=== PATIENT | female | born 1995 ===

== ENCOUNTER 2017-01-12 09:55 | Emergency (ER) | payer MEDICAID ==
[2017-01-12 10:00] VITALS: BP 128/79; PULSE 80; TEMP 97; O2SAT 98; BMI 26.4
[2017-01-12 10:10] VITALS: RESP 17
--- NOTE | 2017-01-12 10:13 | ED PDOC ---
HPI: General Adult Time Seen by Provider: 01/12/17 10:12 Chief Complaint (Nursing): Cough, Cold, Congestion Chief Complaint (Provider): congestion History Per: Patient Additional Complaint(s): 21-year-old female presents to emergency Department with 1 month history of persistent seasonal allergy symptoms. Patient states she has had itchy, watery eyes, nasal congestion and itchy scratchy throat. She has been taking Claritin daily but this has not helped. She denies fever or chills, no chest pain, shortness of breath or dyspnea on exertion. Past Medical History Reviewed: Historical Data, Nursing Documentation, Vital Signs Vital Signs: Last Vital Signs Temp 97 F L 01/12/17 10:07 Pulse 80 01/12/17 10:07 Resp 17 01/12/17 10:07 BP 128/79 01/12/17 10:07 Pulse Ox 98 01/12/17 10:13 - Medical History PMH: Asthma (as a child) - Surgical History Surgical History: Appendectomy - Family History Family History: States: No Known Family Hx - Living Arrangements Living Arrangements: With Family - Social History Current smoker - smoking cessation education provided: No Alcohol: None Drugs: Denies - Home Medications Home Medications: Ambulatory Orders Medication Instructions Recorded Azelastine HCl 6 ml TOP ASDIR #1 bottle 01/12/17 Fluticasone Nasal [Flonase] 1 spray NS DAILY #1 bottle 01/12/17 - Allergies Allergies/Adverse Reactions: Allergies Allergy/AdvReac Type Severity Reaction Status Date / Time No Known Allergies Allergy Verified 01/12/17 10:07 Review of Systems ROS Statement: Except As Marked, All Systems Reviewed And Found Negative Constitutional: Negative for: Fever, Chills Eyes: Positive for: Other (itchy watery eyes) ENT: Positive for: Nose Congestion Respiratory: Negative for: Cough, Shortness of Breath, SOB with Exertion Gastrointestinal: Negative for: Nausea, Vomiting Neurological: Negative for: Headache, Dizziness Physical Exam - Reviewed Nursing Documentation Reviewed: Yes Vital Signs Reviewed: Yes - Physical Exam Appears: Positive for: Well, Non-toxic, No Acute Distress Head Exam: Positive for: ATRAUMATIC, NORMAL INSPECTION Skin: Positive for: Normal Color Eye Exam: Positive for: Normal appearance, EOMI, PERRL, Other (Bilateral conjunctival injection, tearing noted with no purulent discharge, no periorbital swelling or tenderness bilaterally). Negative for: Nystagmus ENT: Positive for: TM Is/Are (TM's normal bilaterally), Nasal Congestion. Negative for: Pharyngeal Erythema, Tonsillar Exudate, Tonsillar Swelling Neck: Positive for: Painless ROM Cardiovascular/Chest: Positive for: Regular Rate, Rhythm Respiratory: Positive for: Normal Breath Sounds. Negative for: Wheezing, Respiratory Distress Extremity: Positive for: Normal ROM. Negative for: Pedal Edema Neurologic/Psych: Positive for: Alert, Oriented - ECG O2 Sat by Pulse Oximetry: 98 Pulse Ox Interpretation: Normal Medical Decision Making Medical Decision Making: Impression: Seasonal allergies Patient is well appearing, afebrile, nontoxic appearing. Plan: Rx given for Azestaline ophthalmic and Flonase. Patient was instructed to take Suni during the day and Benadryl at night. Patient was referred to clinic for follow up. Disposition - Clinical Impression Clinical Impression: Seasonal allergies - Patient ED Disposition Is Patient to be Admitted: No Counseled Patient/Family Regarding: Diagnosis, Need For Followup, Rx Given - Disposition Referrals: [facility] [Outside] Disposition: Routine/Home Disposition Time: 10:24 Condition: STABLE Additional Instructions: Over the counter meds: Take 1 tablet of Suni 24 hour release daily, take 2 tablets of Benadryl before bedtime. Take rx meds as directed along with above over the counter meds. Follow up with clinic in 2-3 days. Prescriptions: Azelastine HCl 6 ml TOP ASDIR #1 bottle Fluticasone Nasal [Flonase] 1 spray NS DAILY #1 bottle Instructions: Allergies (ED)
== END 2017-01-12 10:48 | disposition home or self-care (01) ==
LOC: H.ER 09:55
DX: J30.2 Other seasonal allergic rhinitis (principal)

== ENCOUNTER 2017-05-12 10:58 | Emergency (ER) | payer MEDICAID ==
[2017-05-12 10:58] VITALS: BMI 26.4
[2017-05-12 11:17] VITALS: O2SAT 98
[2017-05-12] MEDS ORDERED: Sodium Chloride 0.9% 1,000 ML IV STA ×2 (11:24)
[2017-05-12 12:08] LABS: BASO % 0.5 % (0.0-2.0); EOS # 0.1 K/uL (0.0-0.7); EOS % 1.8 % (0.0-4.0); HEMATOCRIT 41.8 % (34.0-47.0); LYMPH # 1.6 K/uL (1.0-4.3); LYMPH % 25.1 % (20.0-40.0); MEAN CELL VOLUME 85.5 fl (81.0-99.0); MEAN CORPUSCULAR HEMOGLOBIN 28.2 pg (27.0-31.0); MEAN CORPUSCULAR HGB CONC 32.9 g/dL (33.0-37.0); MEAN PLATELET VOLUME 7.3 fl (7.2-11.7); MONO # 0.8 K/uL (0.0-0.8); MONO % 12.5 % (0.0-10.0); NEUT # 3.8 K/uL (1.8-7.0); NEUT % 60.1 % (50.0-75.0); NRBC % 0.1 % (0.0-0.0); RED CELL DISTRIBUTION WIDTH 13.9 % (11.5-14.5); WHITE BLOOD COUNT 6.4 K/uL (4.8-10.8)
[2017-05-12 12:19] LABS: ALB/GLOB RATIO 1.3 (1.0-2.1); ALKALINE PHOSPHATASE 119 U/L (38-126); ALT/SGPT 55 U/L (9-52); AST/SGOT 29 U/L (14-36); BILIRUBIN,TOTAL 0.4 mg/dl (0.2-1.3); BLOOD UREA NITROGEN 10 mg/dl (7-17); CARBON DIOXIDE 23 mmol/L (22-30); CHLORIDE 107 mmol/L (98-107); GFR AFRICAN-AMERICAN > 60; GLUCOSE,RANDOM 93 mg/dL (65-105); LIPASE 81 U/L (23-300); SODIUM 141 mmol/l (132-148); TOTAL PROTEIN 6.9 G/DL (6.3-8.2)
--- NOTE | 2017-05-12 16:33 | ED PDOC ---
HPI: Abdomen Time Seen by Provider: 05/12/17 11:05 Chief Complaint (Nursing): Abdominal Pain Chief Complaint (Provider): Diffuse abdominal pain, N/V/D History Per: Patient History/Exam Limitations: no limitations Onset/Duration Of Symptoms: Days (3) Outside of [place] travel?: No Current Symptoms Are (Timing): Still Present Severity: Moderate Quality Of Discomfort: Cramping Associated Symptoms: Nausea, Vomiting, Diarrhea, Loss Of Appetite. denies: Fever, Chills, Back Pain, Chest Pain, Constipation, Urinary Symptoms Additional Complaint(s): Pt reports pain mostly prior to BM. No similar in the past. Past Medical History Reviewed: Historical Data, Nursing Documentation, Vital Signs Vital Signs: Last Vital Signs Temp 98.3 F 05/12/17 11:14 Pulse 98 H 05/12/17 11:14 Resp 20 05/12/17 11:14 BP 112/65 05/12/17 11:14 Pulse Ox 98 05/12/17 16:33 - Medical History PMH: Asthma (as a child) - Surgical History Surgical History: Appendectomy - Family History Family History: States: No Known Family Hx - Living Arrangements Living Arrangements: With Family - Social History Current smoker - smoking cessation education provided: No Alcohol: None Drugs: Denies - Home Medications Home Medications: Ambulatory Orders Medication Instructions Recorded Azelastine HCl 6 ml TOP ASDIR #1 bottle 01/12/17 Fluticasone Nasal [Flonase] 1 spray NS DAILY #1 bottle 01/12/17 Dicyclomine [Bentyl] 20 mg PO Q6H PRN #20 tab 05/12/17 Ondansetron ODT [Zofran ODT] 4 mg PO QID #20 odt 05/12/17 - Allergies Allergies/Adverse Reactions: Allergies Allergy/AdvReac Type Severity Reaction Status Date / Time No Known Allergies Allergy Verified 05/12/17 11:14 Review of Systems ROS Statement: Except As Marked, All Systems Reviewed And Found Negative Constitutional: Negative for: Fever, Chills Cardiovascular: Negative for: Chest Pain Respiratory: Negative for: Cough Gastrointestinal: Positive for: Nausea, Vomiting, Abdominal Pain, Diarrhea Genitourinary Female: Negative for: Dysuria, Frequency Physical Exam - Reviewed Nursing Documentation Reviewed: Yes Vital Signs Reviewed: Yes - Physical Exam Appears: Positive for: Well, Non-toxic, No Acute Distress Head Exam: Positive for: ATRAUMATIC, NORMAL INSPECTION, NORMOCEPHALIC Skin: Positive for: Normal Color, Warm, DRY Eye Exam: Positive for: Normal appearance ENT: Positive for: Normal ENT Inspection Neck: Positive for: Normal, Painless ROM Cardiovascular/Chest: Positive for: Regular Rate, Rhythm Respiratory: Positive for: CNT, Normal Breath Sounds Gastrointestinal/Abdominal: Positive for: Normal Exam, Bowel Sounds, Soft. Negative for: Tenderness Back: Positive for: Normal Inspection Extremity: Positive for: Normal ROM Neurologic/Psych: Positive for: Alert, Oriented - Laboratory Results Result Diagrams: 05/12/17 11:50 05/12/17 11:50 - ECG O2 Sat by Pulse Oximetry: 98 Disposition - Clinical Impression Clinical Impression: Gastroenteritis - Patient ED Disposition Is Patient to be Admitted: No Counseled Patient/Family Regarding: Diagnosis, Need For Followup, Rx Given - Disposition Disposition: Routine/Home Disposition Time: 14:41 Condition: GOOD Prescriptions: Dicyclomine [Bentyl] 20 mg PO Q6H PRN #20 tab PRN Reason: Cramping Ondansetron ODT [Zofran ODT] 4 mg PO QID #20 odt Instructions: Gastroenteritis (ED)
[2017-05-12 16:48] VITALS: BP 132/74; PULSE 82; RESP 19; TEMP 98.6
== END 2017-05-12 16:49 | disposition home or self-care (01) ==
LOC: H.ER 10:58
DX: K52.9 Noninfective gastroenteritis and colitis, unspecified (principal); J45.909 Unspecified asthma, uncomplicated
CPT/HCPCS: 80053; 81025; 83690; 85025; 87045; 87177; 87209; 96374; 99284; J2405; J7040

== ENCOUNTER 2017-05-14 00:30 | Emergency (ER) | payer MEDICAID ==
[2017-05-14 00:30] VITALS: BMI 26.4
[2017-05-14 00:56] VITALS: BP 118/71; PULSE 75; RESP 16; TEMP 98.1; O2SAT 98
--- NOTE | 2017-05-14 01:33 | ED PDOC ---
HPI: Skin/Bite Injury Time Seen by Provider: 05/14/17 00:52 Chief Complaint (Nursing): Abnormal Skin Integrity Chief Complaint (Provider): rash History Per: Patient History/Exam Limitations: no limitations Onset/Duration Of Symptoms: Days (1) Current Symptoms Are (Timing): Still Present Quality Of Symptoms: Itching Additional History Per: Patient Additional Complaint(s): 22 y/o female presents for eval of generalized pruritic rash x 1 day. Patient states she was in ED 2 days ago for stomach virus, was discharged with Bentyl which she has been taking for >24 hours. Patient notes rash to arms, abdomen, back. Denies facial/tongue swelling, difficulty speaking/swallowing, nausea/ vomiting, chest pain, shortness of breath, palpitations, changes in bowel movements. Past Medical History Reviewed: Historical Data, Nursing Documentation, Vital Signs Vital Signs: Last Vital Signs Temp 98.1 F 05/14/17 00:53 Pulse 75 05/14/17 00:53 Resp 16 05/14/17 00:53 BP 118/71 05/14/17 00:53 Pulse Ox 98 05/14/17 01:34 - Medical History PMH: Asthma (as a child) - Surgical History Surgical History: Appendectomy - Family History Family History: States: No Known Family Hx - Home Medications Home Medications: Ambulatory Orders Medication Instructions Recorded Azelastine HCl 6 ml TOP ASDIR #1 bottle 01/12/17 Fluticasone Nasal [Flonase] 1 spray NS DAILY #1 bottle 01/12/17 Dicyclomine [Bentyl] 20 mg PO Q6H PRN #20 tab 05/12/17 Ondansetron ODT [Zofran ODT] 4 mg PO QID #20 odt 05/12/17 Prednisone 50 mg PO DAILY #4 tablet 05/14/17 - Allergies Allergies/Adverse Reactions: Allergies Allergy/AdvReac Type Severity Reaction Status Date / Time No Known Allergies Allergy Verified 05/14/17 00:52 Review of Systems ROS Statement: Except As Marked, All Systems Reviewed And Found Negative Skin: Positive for: Rash Physical Exam - Reviewed Nursing Documentation Reviewed: Yes Vital Signs Reviewed: Yes - Physical Exam Appears: Positive for: Well, Non-toxic, No Acute Distress Head Exam: Positive for: ATRAUMATIC, NORMAL INSPECTION, NORMOCEPHALIC Skin: Positive for: Rash (hives noted b/l UE, back, abdomen ) Eye Exam: Positive for: Normal appearance ENT: Positive for: Normal ENT Inspection Cardiovascular/Chest: Positive for: Regular Rate, Rhythm Respiratory: Positive for: Normal Breath Sounds Gastrointestinal/Abdominal: Positive for: Normal Exam Back: Positive for: Normal Inspection Extremity: Positive for: Normal ROM Neurologic/Psych: Positive for: Alert, Oriented - ECG O2 Sat by Pulse Oximetry: 98 - Progress ED Course And Treament: Solumedrol IM, Benadryl PO, Pepcid PO On re-eval, patient states she is feeling better. Rash visibly improved. Patient educated on findings, discharged with rx Prednisone Advised Benadryl. follow up PMD 2-3 days. D/C Neel. Return to ED for worsening/concerning symptoms. Disposition - Clinical Impression Clinical Impression: Rash and nonspecific skin eruption - Patient ED Disposition Is Patient to be Admitted: No Counseled Patient/Family Regarding: Diagnosis, Need For Followup, Rx Given - Disposition Referrals: [facility] [Outside] Disposition: Routine/Home Disposition Time: 02:47 Condition: IMPROVED Additional Instructions: Take medication as directed. Take Benadryl as directed, as needed. Follow up with primary doctor in 2-3 days. Return to ED for worsening/concerning symptoms. Prescriptions: Prednisone 50 mg PO DAILY #4 tablet Instructions: Urticaria (ED) Print Language: CYMRAES
== END 2017-05-14 03:39 | disposition home or self-care (01) ==
LOC: H.ER 00:30
DX: L50.9 Urticaria, unspecified (principal)
CPT/HCPCS: 81025; 96372; 99282; J2930

== ENCOUNTER 2018-04-23 21:19 | Emergency (ER) | payer MEDICAID ==
[2018-04-23 21:20] VITALS: BMI 26.4
[2018-04-23 21:38] VITALS: O2SAT 100
--- NOTE | 2018-04-23 22:21 | ED PDOC ---
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 Patient is and x3 weeks in her . Patient reports the pain as a substernal chest discomfort described as pressure that started x1 hr SEED BUYER while at rest. Patient states pain is exacerbated with deep breaths. She also reports right lower extremity cramps but denies any nausea, vomit, palpitations, dyspnea, diaphoresis or recent travel. Patient is not on control. No further medical complaints. PMD: [facility] Past Medical History Reviewed: Historical Data, Nursing Documentation, Vital Signs Vital Signs: Last Vital Signs Temp 98.0 F 04/23/18 21:35 Pulse 83 04/23/18 21:50 Resp 16 04/23/18 21:35 BP 128/68 04/23/18 21:50 Pulse Ox 100 04/24/18 00:11 - Medical History PMH: Asthma (as a child) - Surgical History Surgical History: Appendectomy - Family History Family History: States: Unknown Family Hx - Social History Current smoker - smoking cessation education provided: No Alcohol: None Drugs: Denies - Home Medications Home Medications: Ambulatory Orders Medication Instructions Recorded Azelastine HCl 6 ml TOP ASDIR #1 bottle 01/12/17 Fluticasone Nasal [Flonase] 1 spray NS DAILY #1 bottle 01/12/17 Dicyclomine [Bentyl] 20 mg PO Q6H PRN #20 tab 05/12/17 Ondansetron ODT [Zofran ODT] 4 mg PO QID #20 odt 05/12/17 Prednisone 50 mg PO DAILY #4 tablet 05/14/17 - Allergies Allergies/Adverse Reactions: Allergies Allergy/AdvReac Type Severity Reaction Status Date / Time No Known Allergies Allergy Verified 05/14/17 00:52 Review of Systems ROS Statement: Except As Marked, All Systems Reviewed And Found Negative Cardiovascular: Positive for: Chest Pain (substernal chest pressure). Negative for: Palpitations, Other (diaphoresis) Respiratory: Negative for: Shortness of Breath Gastrointestinal: Negative for: Nausea, Vomiting Musculoskeletal: Positive for: Leg Pain (right lower cramps) Physical Exam - Reviewed Nursing Documentation Reviewed: Yes Vital Signs Reviewed: Yes - Physical Exam Appears: Positive for: Non-toxic, No Acute Distress Head Exam: Positive for: ATRAUMATIC, NORMAL INSPECTION, NORMOCEPHALIC Skin: Positive for: Normal Color, Warm, Dry Eye Exam: Positive for: Normal appearance, EOMI, PERRL ENT: Positive for: Normal ENT Inspection Neck: Positive for: Painless ROM Cardiovascular/Chest: Positive for: Regular Rate, Rhythm. Negative for: Murmur Respiratory: Positive for: Normal Breath Sounds. Negative for: Respiratory Distress Gastrointestinal/Abdominal: Positive for: Normal Exam, Soft. Negative for: Tenderness Back: Positive for: Normal Inspection Extremity: Positive for: Normal ROM (upper and lower extremities). Negative for : Calf Tenderness, Deformity, Swelling Neurologic/Psych: Positive for: Alert, Oriented. Negative for: Motor/Sensory Deficits - Laboratory Results Result Diagrams: 04/23/18 22:23 04/23/18 22:23 - ECG O2 Sat by Pulse Oximetry: 100 (RA) Pulse Ox Interpretation: Normal Medical Decision Making Medical Decision Making: Time: 21:42 Initial Impression: 23 y/o female with chest pain in setting of early Initial Plan: --EKG --Beta-HCG, Quantitative --CMP --Troponin I --Urine dipstick --Urine --CBC w/ differential --Tylenol 325 mg tab 975 mg PO --Urinalysis --Duplex Lower Extrem Vein Bilat [US] --Reevaluation Duplex Lower Extremity: FINDINGS: Right deep veins: Normal color and spectral Doppler flow. Normal compressibility. No deep vein thrombosis. Right superficial veins: Unremarkable. Left deep veins: Normal color and spectral Doppler flow. Normal compressibility. No deep vein thrombosis. Left superficial veins: Unremarkable. Soft tissues: No popliteal cyst. IMPRESSION: No evidence of DVT within lower extremities. Labs reviewed with no clinically significant abnormalities. Patient reports improvement in symptoms with Tylenol. Given absence of tachycardia and other risk factors, no further imaging is required to rule out pulmonary embolism. Upon provider reevaluation patient is feeling better, is medically stable, and requires no further treatment in the ED at this time. Patient will be discharged. Counseling was provided and all questions were answered regarding diagnosis and need for follow up with PMD. There is agreement to discharge plan. Return if symptoms persist or worsen. ----- Scribe Attestation: Documented by Aristides Page, acting as a scribe for Barrington Puente MD. Provider Scribe Attestation: All medical record entries made by the Scribe were at my direction and personally dictated by me. I have reviewed the chart and agree that the record accurately reflects my personal performance of the history, physical exam, medical decision making, and the department course for this patient. I have also personally directed, reviewed, and agree with the discharge instructions and disposition. Disposition - Clinical Impression Clinical Impression: Atypical chest pain - Patient ED Disposition Is Patient to be Admitted: No - Disposition Disposition: Routine/Home Disposition Time: 00:07 Condition: STABLE Instructions: Chest Pain That Is Not Caused by the Heart (DC) Forms: [employer] ([place])
[2018-04-23 22:29] LABS: BASO # 0.1 K/uL (0.0-0.2); BASO % 0.9 % (0.0-2.0); EOS # 0.1 K/uL (0.0-0.7); EOS % 1.2 % (0.0-4.0); HEMOGLOBIN 12.4 g/dL (12.0-16.0); LYMPH % 24.2 % (20.0-40.0); MEAN CELL VOLUME 84.7 fl (81.0-99.0); MEAN CORPUSCULAR HEMOGLOBIN 27.8 pg (27.0-31.0); MEAN CORPUSCULAR HGB CONC 32.9 g/dL (33.0-37.0); MEAN PLATELET VOLUME 7.2 fl (7.2-11.7); MONO # 0.7 K/uL (0.0-0.8); MONO % 7.9 % (0.0-10.0); NEUT # 5.5 K/uL (1.8-7.0); NEUT % 65.8 % (50.0-75.0); RBC 4.47 Mil/uL (3.80-5.20); RED CELL DISTRIBUTION WIDTH 14.3 % (11.5-14.5); WHITE BLOOD COUNT 8.4 K/uL (4.8-10.8)
[2018-04-23 22:39] LABS: ALB/GLOB RATIO 1.4 (1.0-2.1); ALT/SGPT 26 U/L (9-52); AST/SGOT 22 U/L (14-36); BLOOD UREA NITROGEN 11 mg/dl (7-17); CALCIUM 9.1 mg/dL (8.4-10.2); GFR AFRICAN-AMERICAN > 60; GFR NON-AFRICAN AMERICAN > 60
[2018-04-23 22:54] LABS: SQUAMOUS EPITHIAL 7 /hpf (0-5); URINE BACTERIA RARE (<OCC); URINE BILIRUBIN NEGATIVE (NEGATIVE); URINE BLOOD NEGATIVE (NEGATIVE); URINE CLARITY CLOUDY (Clear); URINE COLOR YELLOW (YELLOW); URINE GLUCOSE (UA) NEG (Normal); URINE LEUKOCYTE ESTERASE SMALL Leu/uL (Negative); URINE PROTEIN NEGATIVE (NEGATIVE); URINE UROBILINOGEN 0.2-1.0 mg/dL (0.2-1.0)
[2018-04-24 00:53] VITALS: BP 115/68; PULSE 79; RESP 18; TEMP 98.4
--- NOTE | 2018-04-24 07:34 | CARD ---
APPROVED REPORT Date of service: 04/23/2018 <Conclusion> Normal sinus rhythm Normal ECG
--- NOTE | 2018-04-24 11:46 | US ---
Date of service: 04/23/2018 PROCEDURE: Bilateral lower extremity venous duplex Doppler. HISTORY: lower extremity cramps COMPARISON: None available. TECHNIQUE: Bilateral common femoral, superficial femoral, popliteal and posterior tibial veins were evaluated. Flow was assessed with color Doppler, compressibility, assessment of phasic flow and augmentation response. FINDINGS: COMMON FEMORAL VEIN: Right CFV: Unremarkable. Left CFV: Unremarkable. SUPERFICIAL FEMORAL VEIN: Right SFV: Unremarkable. Left SFV: Unremarkable. POPLITEAL VEIN: Right Popliteal: Unremarkable. Left Popliteal: Unremarkable. POSTERIOR TIBIAL VEIN: Right PTV: Unremarkable. Left PTV: Unremarkable. OTHER FINDINGS: None. IMPRESSION: No evidence of deep venous thrombosis. Concordant results (preliminary interpretation) provided by [facility]. Procedure Completed: 22:35. Preliminary ([facility]) Report: Dictated and Authenticated: 23:28 Final Interpretation: 11:44.
== END 2018-04-24 00:56 | disposition home or self-care (01) ==
LOC: H.ER 21:19
DX: R07.89 Other chest pain (principal); J45.909 Unspecified asthma, uncomplicated

== ENCOUNTER 2018-09-15 09:28 | Emergency (ER) | payer MEDICAID, OTHER ==
--- NOTE | 2018-09-15 11:13 | OBHP ---
Datetime: 09/15/2018 10:11 IP Adm Impression: , intrauterine IP Admit Plan: Observation/Evaluation Admit Comment, IP Provider: 23 YO with IUP at EGA 27 Wks EDC by first T , wh o presents to EDOB with c/o low back pain, that began at 7 AM, is intermittent cramping in the center of her lower back, 6/10, with no radiation. Patient also reports upper abdm pain since 8AM, is const ant, states that it feels like soreness of her epigastric area 6/10, associated with some occasional nausea but not vomiting. Patient denies any VB, Contx, LOF, also denies ENGEL, dizziness, blurry vision, dysuria, diarrhea, chills, fever or any other acute medical complaint at this time. Patient reports +FM. ROS: unremarkable, except as per HPI. Provider: [facility] OBGYN: LMP unknown to patient, h/o preeclampsia in first with 2015 by induction at 37wks. Patient reports normal current . PMH: Denies FMH: Mother w/ anemia SURG: Appendectomy. ALL: NKA SOCHx: Denies ETOH/drugs/Smoking MEDS: Vit LABS: patient reports current labs are normal (MR not available). PE GEN: VS WNL, NAD HEENT: NCAT RESP: CTA b/l CV: RRR, S1 S2 normal ABD: Gravid, BS + normal, soft to palpation, mild tenderness to palp in epigastrium. BACK: No CVA tenderness, mild tenderness to palp of lower paravertebral muscles. LE: No edema, Pedro's neg A/P 23 YO with IUP at EGA 27 Wks EDC , with c/o back pain that began this AM, and upper abdominal tenderness, negative for dysuria, chills, fever, vomiting, diarrhea or other acute m edical complaint at this time. Impression: Lower back pain and upper abdominal pain due to muscle tenderness in . Plan: -Observation in L_D -Matenal VS monitoring -FHR monitoring -D/C planning after monitoring and evaluation Case seen and discussed with attending Dr Keyla Marino MD PGY1 Addendum by Dr. Ramires: I have evaluated the patient independently and I agree with the abov. The p atient was checked, cervix L/T/C - do not suspect labor or chorio. Patient discharged home, labor pre cautions FHR - Baseline A Provider: 140s Comments, ACOG Physical Exam: see triage comment EGA AdmitDate IP: 27.0 Vital Signs Provider: Reviewed; Within Normal Limits IP Chief Complaint: Maternal discomfort NICHD Variability Prov Fetus A: Moderate 6-25bpm NICHD Accel Fetus A IP Provider: [id number] FHR Category Provider Fetus A: Category I
--- NOTE | 2018-09-15 11:15 | OBDCSUM ---
Datetime: 09/15/2018 11:05 Discharged to, Provider: Home Follow up at, Provider: Yuri OROZ[facility] Disch Instr Activity: Normal activity; May be up to bathroom; May be up for meals; May Shower Disch Instr Diet: Regular Discharge Diagnosis, Provider: False Labor - Undelivered Discharge Time: 09/15/2018 11:10 Follow up in weeks, Provider: 09/19/2018 Disch Referrals: None
[2018-09-15 15:28] VITALS: BP 124/68; PULSE 111; O2SAT 99
== END 2018-09-15 11:10 | disposition home or self-care (01) ==
LOC: H.EROB2 09:28
DX: O26.92 Pregnancy related conditions, unspecified, second trimester (principal); M54.5 Low back pain; R10.2 Pelvic and perineal pain; R11.0 Nausea; Z3A.27 27 weeks gestation of pregnancy

== ENCOUNTER 2018-10-28 15:28 | Emergency (ER) | payer OTHER ==
[2018-10-28 15:29] VITALS: BMI 26.4
[2018-10-28 15:36] VITALS: BP 124/78; PULSE 80; RESP 16; TEMP 98.2; O2SAT 96
--- NOTE | 2018-10-28 16:46 | ED PDOC ---
HPI: General Adult Time Seen by Provider: 10/28/18 15:38 Chief Complaint (Nursing): Abnormal Skin Integrity Chief Complaint (Provider): Diffuse Pruritus History Per: Patient History/Exam Limitations: no limitations Onset/Duration Of Symptoms: Days (x3) Current Symptoms Are (Timing): Still Present Additional Complaint(s): 23 year old female, 33 weeks , presents to the ED for evaluation of diffuse pruritus for the past three days not associated with a rash. Additionally, she reports having atraumatic, non-radiating lower back pain for the past four weeks, worse when sitting down. She states she has not taken any anti-itch or pain medications. Otherwise denies abdominal pain, vaginal bleeding, throat swelling, shortness of breath, fever, chills, incontinence, dysuria, hematuria, and any new exposures. Of note, she reports she has felt her baby move today. PMD: Dr. Marshall Past Medical History Reviewed: Historical Data, Nursing Documentation, Vital Signs Vital Signs: Last Vital Signs Temp 98.2 F 10/28/18 15:33 Pulse 80 10/28/18 15:33 Resp 16 10/28/18 15:33 BP 124/78 10/28/18 15:33 Pulse Ox 96 10/28/18 15:33 - Medical History PMH: Asthma (as a child) - Surgical History Surgical History: Appendectomy - Family History Family History: States: Unknown Family Hx - Social History Current smoker - smoking cessation education provided: No Alcohol: None Drugs: Denies - Home Medications Home Medications: Ambulatory Orders Medication Instructions Recorded Fluticasone Nasal [Flonase] 1 spray NS DAILY #1 bottle 01/12/17 RX: Azelastine HCl 6 ml TOP ASDIR #1 bottle 01/12/17 Dicyclomine [Bentyl] 20 mg PO Q6H PRN #20 tab 05/12/17 Ondansetron ODT [Zofran ODT] 4 mg PO QID #20 odt 05/12/17 RX: Prednisone 50 mg PO DAILY #4 tablet 05/14/17 DiphenhydrAMINE [Benadryl] 1 - 2 cap PO Q6 PRN #10 cap 10/28/18 - Allergies Allergies/Adverse Reactions: Allergies Allergy/AdvReac Type Severity Reaction Status Date / Time No Known Allergies Allergy Verified 05/14/17 00:52 Review of Systems ROS Statement: Except As Marked, All Systems Reviewed And Found Negative Constitutional: Positive for: Other (itching). Negative for: Fever, Chills ENT: Negative for: Throat Swelling Respiratory: Negative for: Shortness of Breath Gastrointestinal: Negative for: Abdominal Pain Genitourinary Female: Negative for: Dysuria, Incontinence, Hematuria, Vaginal Bleeding Musculoskeletal: Positive for: Back Pain (lower) Skin: Negative for: Rash Physical Exam - Reviewed Nursing Documentation Reviewed: Yes Vital Signs Reviewed: Yes - Physical Exam Appears: Positive for: No Acute Distress Skin: Positive for: Normal Color, Warm, Dry. Negative for: Rash Eye Exam: Positive for: Normal appearance, EOMI, PERRL ENT: Positive for: Normal ENT Inspection Cardiovascular/Chest: Positive for: Regular Rate, Rhythm Respiratory: Positive for: Normal Breath Sounds. Negative for: Wheezing, Respiratory Distress Gastrointestinal/Abdominal: Positive for: Normal Exam, Other (gravid abdomen). Negative for: Tenderness Back: Positive for: Normal Inspection. Negative for: L CVA Tenderness, R CVA Tenderness, Vertebral Tenderness, Muscle Spasm - ECG O2 Sat by Pulse Oximetry: 96 (RA) Pulse Ox Interpretation: Normal Medical Decision Making Medical Decision Making: Time: 1605 Initial Impression: pruritus, back pain Initial Plan: --Benadryl 25mg PO --Tylenol 650mg PO 1630 Patient stable for d/c and advised to follow up with her obgyn. ----- Scribe Attestation: Documented by Genet Thompson, acting as a scribe for Hudson Ortiz PA-C. Provider Scribe Attestation: All medical record entries made by the Scribe were at my direction and personall y dictated by me. I have reviewed the chart and agree that the record accurately reflects my personal performance of the history, physical exam, medical decision making, and the department course for this patient. I have also personally directed, reviewed, and agree with the discharge instructions and disposition. Disposition - Clinical Impression Clinical Impression: Pruritus, Lower back pain - Patient ED Disposition Is Patient to be Admitted: No - Disposition Referrals: [facility] [Outside] Disposition: Routine/Home Disposition Time: 16:05 Condition: STABLE Additional Instructions: FOLLOW UP WITH YOUR OBGYN FOR FURTHER EVALUATION RETURN TO ED IMMEDIATELY IF SYMPTOMS WORSEN SINA FAUST, thank you for letting us take care of you today. Your provider was Reddy Escalona MD and you were treated for 33 WKS PREG, ITCHING, POSSIBLE ALLERGIC REACTION. The emergency medical care you received today was directed at your acute symptoms. If you were prescribed any medication, please fill it and take as directed. It may take several days for your symptoms to resolve. Return to the Emergency Department if your symptoms worsen, do not improve, or if you have any other problems. Please contact your doctor or call one of the physicians/clinics you have been referred to that are listed on the Patient Visit Information form that is inc luded in your discharge packet. Bring any paperwork you were given at discharge with you along with any medications you are taking to your follow up visit. Our treatment cannot replace ongoing medical care by a primary care provider outside of the emergency department. Thank you for allowing the [facility] team to be part of your care today. If you had an X-Ray or CT scan: A Radiologist will review the ED reading if any change in treatment is needed we will contact you. If you had a blood, urine, or wound culture: It will take several days for the results, if any change in treatment is needed we will contact you. If you had an STI test: It will take 48 hours for the results. Please call after 1 week if you have not heard back. Prescriptions: DiphenhydrAMINE [Benadryl] 1 - 2 cap PO Q6 PRN #10 cap PRN Reason: Itching / Pruritus Instructions: Low Back Pain (DC), Itchy Skin Forms: [employer] (Lithuanian) Print Language: GEORGIAN
== END 2018-10-28 16:36 | disposition home or self-care (01) ==
LOC: H.ER 15:28
DX: O26.93 Pregnancy related conditions, unspecified, third trimester (principal); L29.9 Pruritus, unspecified; M54.5 Low back pain; O99.513 Diseases of the respiratory system complicating pregnancy, third trimester; J45.909 Unspecified asthma, uncomplicated; Z3A.33 33 weeks gestation of pregnancy

== ENCOUNTER 2018-11-07 21:16 | Emergency (ER) | payer OTHER ==
[2018-11-07 21:48] VITALS: BMI 33.5
[2018-11-08 05:36] VITALS: BP 109/74; PULSE 117; O2SAT 95
== END 2018-11-07 23:25 | disposition home or self-care (01) ==
LOC: H.EROB2 21:16
DX: O26.93 Pregnancy related conditions, unspecified, third trimester (principal); R10.2 Pelvic and perineal pain; O21.0 Mild hyperemesis gravidarum; Z3A.34 34 weeks gestation of pregnancy

== ENCOUNTER 2019-02-18 09:36 | Emergency (ER) | payer OTHER ==
[2019-02-18 09:40] VITALS: BP 115/76; PULSE 75; RESP 15; TEMP 97.8; O2SAT 98; BMI 29.3
--- NOTE | 2019-02-18 10:34 | ED PDOC ---
Lower Extremity Pain/Injury Time Seen by Provider: 02/18/19 10:01 Chief Complaint (Nursing): Lower Extremity Problem/Injury Chief Complaint (Provider): Toe injury History Per: Patient History/Exam Limitations: no limitations Onset/Duration Of Symptoms: Days (Today) Additional Complaint(s): Pt. 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 No numbness, tingles, weakness, calf pain, injury elsewhere. Past Medical History Reviewed: Nursing Documentation, Vital Signs Vital Signs: Last Vital Signs Temp 97.8 F 02/18/19 09:39 Pulse 75 02/18/19 09:39 Resp 15 02/18/19 09:39 BP 115/76 02/18/19 09:39 Pulse Ox 98 02/18/19 10:02 Primary Care Provider: FAMILY PROVIDER,NO - Medical History PMH: Asthma (as a child) - Surgical History Surgical History: Appendectomy - Family History Family History: States: Unknown Family Hx - Home Medications Home Medications: Ambulatory Orders Medication Instructions Recorded Azelastine HCl 6 ml TOP ASDIR #1 bottle 01/12/17 Fluticasone Nasal [Flonase] 1 spray NS DAILY #1 bottle 01/12/17 Dicyclomine [Bentyl] 20 mg PO Q6H PRN #20 tab 05/12/17 Ondansetron ODT [Zofran ODT] 4 mg PO QID #20 odt 05/12/17 Prednisone 50 mg PO DAILY #4 tablet 05/14/17 DiphenhydrAMINE [Benadryl] 1 - 2 cap PO Q6 PRN #10 cap 10/28/18 Ibuprofen [Motrin] 600 mg PO TID 7 Days tab 02/18/19 - Allergies Allergies/Adverse Reactions: Allergies Allergy/AdvReac Type Severity Reaction Status Date / Time No Known Allergies Allergy Verified 11/07/18 21:48 Review of Systems Constitutional: Negative for: Weakness Cardiovascular: Negative for: Chest Pain Musculoskeletal: Negative for: Neck Pain, Shoulder Pain, Arm Pain, Hand Pain, Leg Pain Skin: Negative for: Rash Neurological: Negative for: Weakness, Numbness Physical Exam - Reviewed Nursing Documentation Reviewed: Yes Vital Signs Reviewed: Yes - Physical Exam Skin: Positive for: Normal Color, Warm, DRY Neck: Positive for: Normal, Painless ROM, Supple Cardiovascular/Chest: Positive for: Regular Rate, Rhythm Respiratory: Positive for: CNT, Normal Breath Sounds Pulses-Dorsalis Pedis (R): 2+ Back: Positive for: Normal Inspection. Negative for: L CVA Tenderness, R CVA Tenderness Extremity: Positive for: Normal ROM, Tenderness (R 5th toe mild tender; less then 2 sec cap refill; no foot or ankle tenderness). Negative for: Pedal Edema Neurological/Psych: Positive for: Awake, Alert, Normal Tone - ECG O2 Sat by Pulse Oximetry: 98 Pulse Ox Interpretation: Normal - Progress ED Course And Treament: 1157: Stable. AAOx3. Pain free. Tolerated po. Fu with pcp. Disposition - Clinical Impression Clinical Impression: Toe injury - Patient ED Disposition Is Patient to be Admitted: No Counseled Patient/Family Regarding: Studies Performed, Diagnosis, Need For Followup, Rx Given - Disposition Referrals: [facility]iatry Clinic [Outside] - 02/19/19 Disposition: Routine/Home Disposition Time: 09:10 Condition: FAIR Additional Instructions: Return if not better in 3 days. Prescriptions: Ibuprofen [Motrin] 600 mg PO TID 7 Days tab Instructions: Toe Injury Forms: [facility] (Slovenian), [facility] ED School/Work Excuse
--- NOTE | 2019-02-18 11:37 | RAD ---
Date of service: 02/18/2019 PROCEDURE: Fifth digit right foot HISTORY: Posttraumatic pain COMPARISON: None TECHNIQUE: Standard protocol for this study/examination. Three views. FINDINGS: No significant/acute osseous, articular or soft tissue abnormalities. IMPRESSION: No acute findings related to/ accounting for the clinical presentation.
== END 2019-02-18 12:15 | disposition home or self-care (01) ==
LOC: H.ER 09:36
DX: S99.921A Unspecified injury of right foot, initial encounter (principal); W22.8XXA Striking against or struck by other objects, initial encounter; Y92.89 Other specified places as the place of occurrence of the external cause